=== PATIENT | female | born 1960 | race Caucasian/White ===

== ENCOUNTER 2017-06-07 18:06 | Day surgery (SDC) | payer BC ==
[~2017-06-07 18:06] MED LIST: Cyclopentolate 1% Opth Drop 2 ML BOT ONE; Cyclopentolate W/ Phenylephrin 40 DROP/2 ML BOT ONE; Phenylephrine HCl 2.5% Ophth Soln 5 ML BOT ONE
[2017-06-07] MEDS ORDERED: Acetaminophen 500 MG TAB PO PRN (18:29)
[2017-06-07] MEDS ORDERED: Fluorouracil 100 MG, Enoxaparin Sodium 25 MG, EPINEPHrine 0.3 MG in Ophthalmic Irrigati... IVPB SCH (18:30)
[2017-06-07] MEDS ORDERED: Midazolam HCl 2 mg/2 ml Vial ONE ×2 (18:58→19:19)
[2017-06-07] MEDS ORDERED: Fentanyl 100 MCG/2 ML VIAL ONE ×2 (18:58→19:19)
[2017-06-07] MEDS ORDERED: Propofol 200 MG/20 ML VIAL ONE (19:08)
[2017-06-07] MEDS ORDERED: Lidocaine 1% PF 5 ML VIAL ONE (19:08)
--- NOTE | 2017-06-07 22:58 | OP ---
DATE OF PROCEDURE: 06/07/2017 PREOPERATIVE DIAGNOSIS: Rhegmatogenous retinal detachment, left eye. POSTOPERATIVE DIAGNOSIS: Rhegmatogenous retinal detachment, left eye. PROCEDURE: Pars plana vitrectomy and retinal detachment repair, left eye. SURGEON: El Erickson M.D. ANESTHESIA: Local with monitored anesthesia care. COMPLICATIONS: None. PROCEDURE IN DETAIL: The patient was identified in the preoperative holding area. Appropriate info rmed consent for the planned surgical procedure on the left eye had been obtained. The patient was transported to the operative suite where appropriate cardiopulmonary monitoring was established. Lo becca anesthesia was obtained using retrobulbar and modified Van Lint lid block using 50/50 mixture of 4% lidocaine and 0.75% bupivacaine. The patient was prepped and draped in the usual sterile manner for ophthalmic surgery on the left eye. Lid speculum was placed in the left eye. The 25-gauge tro cars were placed in conjunctiva and sclera supratemporally, inferotemporally, and supranasally. Inf usion line was placed inferotemporally. Light pipe and vitreous cutter were inserted into the eye. Core of vitrectomy was performed. Posterior drain retinotomy was created at the edge of the retina l detachment superiorly. Complete air fluid exchange was performed with 10 minutes being allowed fo r fluid to drain posteriorly. A 360 laser was placed using endolaser delivery device. A 28% sulfur hexafluoride gas was infused into the eye. Trocars were removed and eye was noted to retain pressu re well. Retrobulbar Kenalog and subconjunctival Ancef were placed. Atropine and antibiotic ointme nt were placed, and the eye was patched and shielded. Patient was taken to the postoperative recove ry unit in good condition having suffered no immediate perioperative complications. The patient was instructed to keep patch and shield on, avoid lifting or bending, position right side, left side do wn, and follow up in the morning with Dr. Erickson.
== END 2017-06-07 20:30 | disposition home or self-care (01) ==
LOC: SDC 18:06
PROVIDERS: ATTEND Ophthalmology Retina Specialist
PROC: 08953ZZ Drainage of Left Vitreous, Percutaneous Approach (ICD-10-PCS; principal; 2017-06-07)
DX: H33.002 Unspecified retinal detachment with retinal break, left eye (principal); Z88.2 Allergy status to sulfonamides
CPT/HCPCS: 67025; J0171; J1650; J2001; J2250; J2704; J3010; J9190